=== PATIENT | male | born 1960 | race Caucasian/White ===

== ENCOUNTER 2018-01-08 07:49 | Inpatient (IN) | payer OTHER ==
[2018-01-03 14:05] VITALS: BMI 27.1
[2018-01-08] MEDS ORDERED: Midazolam 2 MG/2 ML VIAL ONE (12:46)
[2018-01-08] MEDS ORDERED: Propofol 10 mg/ml Inj (20 ML) ONE (12:46)
[2018-01-08] MEDS ORDERED: ceFAZolin 1 gm in NS 2 GM/200 ML BAG IVPB ONE (12:56)
[2018-01-08] MEDS ORDERED: ePHEDrine 50 mg/ml Inj ONE (13:25)
[2018-01-08] MEDS ORDERED: Oxycodone/Acetaminophen 5/325 mg Tab PO PRN (14:39)
[2018-01-08] MEDS ORDERED: HYDROmorphone 0.5 mg/0.5 ml ISec IVP PRN (14:52)
[2018-01-08] MEDS ORDERED: Lactated Ringer's 1,000 ML IV ONE (17:30)
[2018-01-08 18:11] VITALS: RESP 20
[2018-01-08] MEDS: ceFAZolin 1 GM in Sodium Chloride 0.9% 100 ML IVPB SCH (22:04)
--- NOTE | 2018-01-09 01:28 | OP ---
PROCEDURE DATE: 01/08/2018 PREOPERATIVE DIAGNOSES: 1. A 5 cm hemangioma of the right knee and leg. 2. Extensive varicose veins of right lower extremity. PROCEDURE PERFORMED: 1. Wide deep excision a 5 cm hemangioma of the right leg. 2. Right leg varicose vein, ligation, stripping and stab phlebectomy. SURGEON: Alejo De Guzman MD. ANESTHESIA: General endotracheal. ESTIMATED BLOOD LOSS: 100 mL. POSTOPERATIVE CONDITION: Stable. INDICATIONS FOR SURGERY: This is 57-year-old male with painful right leg secondary to painful hemangioma 5 cm in size of the right knee and leg, also extensive varicose veins. He was admitted for definitive surgical therapy including excision of each hemangioma, along with removal of varicose veins of his leg. Prior to coming to the operating room, the varicose veins in the right lower extremity were marked and both hemangiomas were circled and noted. PROCEDURE: The patient taken to the operating room and placed in a supine position. General anesthesia was administered and was first turned to the right knee, where an elliptical incision was made and large hemangioma was excised into the fascia, later bleeding was controlled using a Bovie. Underlying blood vessels were repaired. A transverse flaps full thickness including fascial muscles were raised to close the wound with counter incisions and a graded in undermining we used multiple layers of Monocryl, subcuticular Monocryl and clips. The above was repeated on hemangioma of the right leg. The remaining veins were excised via stab phlebectomy and simple closures with the skin clips were performed. The patient tolerated the procedure well, returned to recovery room in stable condition. Alejo De Guzman MD
[2018-01-09 07:15] LABS: BASO % 0.4 % (0.0-2.0); EOS # 0.1 K/uL (0.0-0.7); EOS % 1.9 % (0.0-4.0); LYMPH # 1.1 K/uL (1.0-4.3); LYMPH % 17.6 % (20.0-40.0); MEAN CORPUSCULAR HEMOGLOBIN 31.4 pg (27.0-31.0); MEAN CORPUSCULAR HGB CONC 34.1 g/dL (33.0-37.0); MONO # 0.6 K/uL (0.0-0.8); MONO % 8.8 % (0.0-10.0); NEUT # 4.6 K/uL (1.8-7.0); NEUT % 71.3 % (50.0-75.0); NRBC % 0.1 % (0.0-2.0); RBC 4.81 Mil/uL (4.40-5.90); RED CELL DISTRIBUTION WIDTH 13.9 % (11.5-14.5); WHITE BLOOD COUNT 6.4 K/uL (4.8-10.8)
[2018-01-09 07:18] LABS: HEMOGLOBIN 15.1 g/dL (12.0-18.0)
[2018-01-09] MEDS: ceFAZolin 1 GM in Sodium Chloride 0.9% 100 ML IVPB SCH (07:40)
[2018-01-09 08:00] LABS: BLOOD UREA NITROGEN 10 mg/dL (9-20); CALCIUM 8.1 mg/dl (8.6-10.4); GFR AFRICAN-AMERICAN > 60; GFR NON-AFRICAN AMERICAN > 60
[2018-01-09] MEDS ORDERED: Pneumococcal 23-Valent Vaccine IM ONE (08:00)
[2018-01-09 08:10] VITALS: PULSE 75; TEMP 98.1; O2SAT 96
--- NOTE | 2018-01-09 09:59 | CP.PCM.PN ---
Subjective - Date & Time of Evaluation Date of Evaluation: 01/09/18 Time of Evaluation: 07:00 - Subjective Subjective: PGY 2 medicine progress note for Dr. Zuñiga: Patient was seen and examined at bedside this morning. He POD #1 s/p excision of heamangioma and vein stripping on the right leg with Dr. De Guzman. He has might pain at this site but otherwise has no complaints. Denies fever/chills, chest pain, abd pain, SOB. Is urinating, passing gas and able to tolerate regular diet. He is to be discharged today per surgery. He should follow up with Dr. Zuñiga outpatient within one week of discharge. Objective - Vital Signs/Intake and Output Vital Signs (last 24 hours): Temp Pulse Resp BP Pulse Ox 98.1 F 75 20 117/70 96 01/09/18 08:08 01/09/18 08:08 01/09/18 08:08 01/09/18 08:08 01/09/18 08:08 Intake and Output: 01/09/18 01/09/18 06:59 18:59 Intake Total 1050 Output Total 950 Balance 100 - Medications Medications: Current Medications Docusate Sodium (Colace) 100 mg PO BID [facility] Last Admin: 01/09/18 09:29 Dose: 100 mg Enoxaparin Sodium (Lovenox) 30 mg SC DAILY [facility] Last Admin: 01/09/18 09:29 Dose: 30 mg Cefazolin Sodium 1 gm/ Sodium (Chloride) 100 mls @ 200 mls/hr IVPB Q8H [facility] PRN Reason: Protocol Last Admin: 01/09/18 07:40 Dose: 200 mls/hr Ketorolac Tromethamine (Toradol) 30 mg IVP Q6 PRN PRN Reason: pain 8-10 Stop: 01/13/18 14:40 Ondansetron HCl (Zofran Inj) 4 mg IVP Q6 PRN PRN Reason: Nausea/Vomiting Oxycodone/Acetaminophen (Percocet 5/325 Mg Tab) 2 tab PO Q4H PRN PRN Reason: pain Stop: 01/11/18 14:40 Pantoprazole Sodium (Protonix Inj) 40 mg IVP DAILY [facility] Last Admin: 01/09/18 09:29 Dose: 40 mg - Labs Labs: 01/09/18 07:01 01/09/18 07:01 - Constitutional Appears: Non-toxic, No Acute Distress - Head Exam Head Exam: ATRAUMATIC, NORMAL INSPECTION - Eye Exam Eye Exam: EOMI - ENT Exam ENT Exam: Mucous Membranes Moist - Respiratory Exam Respiratory Exam: Clear to Ausculation Bilateral, NORMAL BREATHING PATTERN. absent: Respiratory Distress - Cardiovascular Exam Cardiovascular Exam: REGULAR RHYTHM, +S1, +S2 - GI/Abdominal Exam GI & Abdominal Exam: Soft, Normal Bowel Sounds. absent: Distended, Firm, Guarding, Tenderness - Extremities Exam Extremities Exam: Normal Inspection Additional comments: right leg bandages/dressing in place. c/d/i - Neurological Exam Neurological Exam: Alert, Awake, Oriented x3 Assessment and Plan - Assessment and Plan (Free Text) Assessment: Patient is to follow up with Dr. Zuñiga outpatient within one week of discharge. No medications at home. No complaints at this time. All other management per surgery.
[2018-01-09] MEDS ORDERED: Enoxaparin 30 mg Syringe SC SCH (10:00)
[2018-01-09 10:22] VITALS: BP 127/72
== END 2018-01-09 13:00 | disposition home or self-care (01) | DRG 263 ==
LOC: C.SDS 07:49 → C.9S 14:42 → C.3T 17:06
PROVIDERS: ADMIT Surgery; ATTEND Surgery
PROC: 06DY3ZZ Extraction of Lower Vein, Percutaneous Approach (ICD-10-PCS; 2018-01-08)
PROC: 0JBN0ZZ Excision of Right Lower Leg Subcutaneous Tissue and Fascia, Open Approach (ICD-10-PCS; principal; 2018-01-08 10:00)
DX: D18.09 Hemangioma of other sites (principal); I83.91 Asymptomatic varicose veins of right lower extremity